=== PATIENT | male | born 1950 | race Caucasian/White ===

== ENCOUNTER → 2023-10-17 09:23 | Outpatient (REF) | payer MEDICARE, SELFPAY | LOC: RCS 09:23 | PROVIDERS: ATTENDING PHYSICIAN Family Medicine | DX: G31.84 Mild cognitive impairment of uncertain or unknown etiology (principal); R42 Dizziness and giddiness; E78.5 Hyperlipidemia, unspecified; I25.10 Atherosclerotic heart disease of native coronary artery without angina pectoris; I35.0 Nonrheumatic aortic (valve) stenosis | CPT/HCPCS: 93225; 93226 ==

== ENCOUNTER → 2023-10-20 14:43 | Outpatient (REF) | payer MEDICARE, SELFPAY | LOC: HWRCS 14:43 | PROVIDERS: ATTENDING PHYSICIAN Family Medicine | DX: I35.0 Nonrheumatic aortic (valve) stenosis (principal) | CPT/HCPCS: 93306 ==

== ENCOUNTER → 2023-10-30 07:52 | Outpatient (REF) | payer MEDICARE, SELFPAY | LOC: HWRAD 07:52 | PROVIDERS: ATTENDING PHYSICIAN Family Medicine | DX: M54.2 Cervicalgia (principal) | CPT/HCPCS: 72050 ==

== ENCOUNTER 2023-11-23 08:11 | Day surgery (SDC) | payer MEDICARE, SELFPAY ==
[2023-11-23] VITALS (15 sets, daily range): BP systolic 102–160; BP diastolic 52–92; BMI 26.7
[2023-11-23] MEDS: NSS 215 ML IV (09:00)
[2023-11-23 09:35] LABS: ACT-LR - POC 382 Seconds (116-155)
--- NOTE | 2023-11-23 10:29 | ITS.CL.CATH ---
[employer] - Catheterization
Cardiac Catheterization
Procedure Report:
CARDIAC CATHETERIZATION REPORT
Date of Procedure: 11/23/2023
Referring: Brad Heller MD
Indication: Exertional dyspnea with severe aortic stenosis by echo
HEMODYNAMIC DATA
AO: 124/60
LV: 167/20
The mean gradient across the aortic valve is 31 mmHg
LEFT VENTRICULOGRAPHY: Not done
CORONARY ANGIOGRAPHY
Dominance: Right
Left Main: Normal
LAD: There is a widely patent mid LAD stent (ROYA 2019) with mild luminal irregularities in the mid LAD. There is a 90% distal LAD stenosis new since the prior study from 2019. The large first diagonal branch has 30% proximal stenosis. The large
second diagonal branch has a widely patent proximal stent with 30% stenosis distal to the stent and otherwise mild luminal irregularities.
Circumflex: The circumflex gives rise to a medium sized OM1, a large OM 2, and terminates with a tiny OM 3. There is focal 30-40% proximal OM2 stenosis
RCA: Moderate calcification with 30% distal stenosis just past the crux and otherwise multiple areas of mild luminal disease throughout the dominant RCA
Angioplasty: At the conclusion of the diagnostic study, we proceeded with intervention to treat the distal LAD disease. Of note, elective surgical consultation was not obtained to discuss the option for AVR CABG as the LAD lesion was distal making
it an unlikely surgical target. Furthermore, the aortic stenosis appears to be moderate to severe. My thinking was that coronary revascularization may eliminate his symptoms allowing him to be followed for progressive aortic stenosis then treated
with TAVR. Heparin was used for anticoagulation. Plavix 600 mg was administered the procedure conclusion. A 6 Turkmen EBU 3.75 guide catheter was advanced to the left coronary ostium. A whisper wire could not be passed across the lesion.
Fortunately, a Fielder XT was successfully passed to the apical LAD. Angioplasty was accomplished with a 2.25 x 12 trek balloon. We were unable to pass a 2.25 x 18 Xience ROYA across the entirety of the lesion. The undeployed stent was carefully
removed and further angioplasty to maximum 12 neisha performed. This allowed the stent to the target location where was deployed at 15 years and then postdilated with a 2.5 NC trek to atmospheres. The result was outstanding. There were no procedural
complications.
Closure Device: None-the procedure was performed via the right radial artery. The Marc's test was normal prior to the procedure.
Radiation (mGy): 370
DAP (cm2.Gy): 25.5
Fluoroscopy time: 12.6 minutes
CONCLUSIONS
1: Moderate to severe aortic stenosis. There is severe fluoroscopic calcification of the valve
2: Severe single-vessel CAD as described. The previously placed LAD and diagonal stents are widely patent. 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
3. Successful stenting of distal LAD stenosis using 2.25 x 18 Xience ROYA postdilated with a 2.5 noncompliant balloon with outstanding final result
4. Recommend dual antiplatelet therapy for 12 months and continued risk factor modification efforts. I would use an LDL goal of less than 55 for this patient given the presence of diffuse luminal disease and multiple events
Copy to: Brad Heller MD, Amaury Polanco MD
Jung Beatty MD, [facility], [facility]
[2023-11-23] MEDS: NSS 1000 IV (10:30)
[2023-11-23] MEDS: LOW STRENGTH ASPIRIN 81 MG PO (12:18)
--- NOTE | 2023-11-23 14:46 | W.PN.UPDATE ---
Update Note
Progress Note Update
73 yo WM s/p PCI distal LAD x1 ROYA (same day) He feels good, no cp, sob, ayden diet, voiding, amb w/o dizziness, EKG SB no ST changes, R rad site c/d/i no HT, good pulse. He will be on DAPT ASA/Plavix. Cardiac rehab c/s. Activity restrictions
reviewed. He will f/u [employer] in 2 weeks. He is for d/c home after 3pm.
CONCLUSIONS
1: Moderate to severe aortic stenosis. There is severe fluoroscopic calcification of the valve
2: Severe single-vessel CAD as described. The previously placed LAD and diagonal stents are widely patent. 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
3. Successful stenting of distal LAD stenosis using 2.25 x 18 Xience ROYA postdilated with a 2.5 noncompliant balloon with outstanding final result
4. Recommend dual antiplatelet therapy for 12 months and continued risk factor modification efforts. I would use an LDL goal of less than 55 for this patient given the presence of diffuse luminal disease and multiple events
Copy to: Brad Heller MD, Amaury Polanco MD
[2023-11-27 11:18] LABS: ACT-LR - POC > 397 Seconds (116-155)
== END 2023-11-23 16:05 | disposition home or self-care (01) ==
LOC: CATH 08:11
PROVIDERS: ATTENDING PHYSICIAN Internal Medicine Cardiovascular Disease; FAMILY PHYSICIAN Family Medicine; OTHER PHYSICIAN Internal Medicine Cardiovascular Disease
DX: I25.10 Atherosclerotic heart disease of native coronary artery without angina pectoris (principal); Z95.5 Presence of coronary angioplasty implant and graft; Z79.82 Long term (current) use of aspirin; Z79.02 Long term (current) use of antithrombotics/antiplatelets; I08.0 Rheumatic disorders of both mitral and aortic valves; I08.8 Other rheumatic multiple valve diseases; I10 Essential (primary) hypertension; E78.5 Hyperlipidemia, unspecified
CPT/HCPCS: 93005; 93458; C1725; C1769; C1874; C1894; C9600; Q9967

== ENCOUNTER → 2023-12-04 07:06 | Outpatient (REF) | payer MEDICARE, SELFPAY | LOC: RAD 07:06 | PROVIDERS: ATTENDING PHYSICIAN Family Medicine | DX: G31.84 Mild cognitive impairment of uncertain or unknown etiology (principal); R42 Dizziness and giddiness; I35.0 Nonrheumatic aortic (valve) stenosis | CPT/HCPCS: 93880 ==

== ENCOUNTER → 2024-09-17 07:16 | Outpatient (REF) | payer MEDICARE, SELFPAY | LOC: HWRCS 07:16 | PROVIDERS: ATTENDING PHYSICIAN Internal Medicine Cardiovascular Disease; FAMILY PHYSICIAN Family Medicine | DX: I35.0 Nonrheumatic aortic (valve) stenosis (principal) | CPT/HCPCS: 93306 ==

== ENCOUNTER 2024-09-25 17:44 | Emergency (ER) | payer MEDICARE, SELFPAY ==
[2024-09-25 17:46] VITALS: BP 175/90
--- NOTE | 2024-09-25 19:02 | ED.GENMED ---
History of Present Illness
General
Chief Complaint: Nose Bleed
Source: patient
Exam Limitations: none
Time Seen by Provider: 09/25/24 18:41
Nursing documentation reviewed up to this point in time: agreed with
History of Present Illness
History of Present Illness:
Pleasant 73-year-old male presents to the emergency department with nosebleed. He states that around 4 AM he developed a nosebleed which was intermittently present throughout the day. Patient states that he gets 2-3 nosebleeds per month but they
are usually self-limited. Denies any other symptoms. Upon arrival, bleeding has stopped. Reports no other symptoms.
Past History
Past History
ED Past Medical History: None
ED Past Surgical History: None
Social History
Tobacco: Non-smoker
Alcohol: None
Drug: None
Personal:
Living: with family
Review of Systems
Review of Systems
Allergies reviewed?: Yes
All Other Systems: ROS reviewed and negative except as documented in HPI and ROS
EENT: Reports other (Epistaxis)
Phy Exam
Physical Exam
Physical Exam:
Right naris shows some dried blood in the anterior Linh box plexus. Bleeding has stopped. Left naris shows some scant dried blood.
General Physical Exam
General Presentation: well appearing and no apparent distress
General age: appears stated age
General Skin: warm and dry
General Habitus: normal
General Mental: alert
Cardiovascular Exam
Cardiovascular Exam: regular rate/rhythm
Pulmonary Exam
Pulmonary Exam: no respiratory distress and no cough
Neurological Exam
Neurological Exam: alert and oriented x3
Musculoskeletal Exam
Musculoskeletal Exam: full ROM
Skin Exam
Skin Exam: normal color and warm/dry
Psychiatric Exam
Psychiatric Exam: normal mood/affect
Course
Vital Signs
Initial and Last Documented VS:
Initial Vital Signs
Temp Pulse Resp BP Pulse Ox
99.0 F 75 20 175/90 99
09/25/24 17:46 09/25/24 17:46 09/25/24 17:46 09/25/24 17:46 09/25/24 17:46
Last Documented Vital Signs
Temp Pulse Resp BP Pulse Ox
99.0 F 64 18 159/71 99
09/25/24 17:46 09/25/24 19:26 09/25/24 19:26 09/25/24 19:26 09/25/24 19:26
Procedures
Nosebleed
Drug treatment: none
Treatment: Silver nitrate cautery
Post treatment bleeding: none- good control
*Critical Care Note
Total Time (30-74mins, 75-104mins- exclusive of procedures): Not Applicable
ED Attending Note
-
Portions of this chart may have been created with voice recognition software.� Occasional wrong word or��sound alike� substitutions may have occurred due to the inherent limitations of voice recognition software.
Discharge Plan
Departure
Patient Disposition: Home (Routine Discharge)
Date of Disposition: 09/25/24
Time of Disposition: 19:47
Patient with high blood pressure during this ER visit?: Yes
Discharge Problem:
Bleeding nose
Instructions: Nosebleeds (DC), BLOOD PRESSURE
Prescriptions:
No Action
Zinc Chelate 100 MG tablet
100 mg PO DAILY
Patient Comments:
Zinc 100 mls daily
aspirin [Aspir-Low] 81 MG tablet,delayed release (DR/EC)
81 mg PO DAILY
fish oil-dha-epa 1 EACH capsule
2,400 mg PO DAILY
magnesium sulfate in LR 25 GM/250 ML solution
250 ml PO DAILY
cholecalciferol (vitamin D3) [Vitamin D3] 2,000 UNIT capsule
2,000 unit PO DAILY
acidophilus-pectin, citrus [Acidophilus Probiotic] 1 EACH capsule
1 PO DAILY
Patient Comments:
2 billion CFU
potassium gluconate 500 MG tablet
500 mg PO DAILY
biotin 5,000 MCG tablet,disintegrating
5,000 mcg PO DAILY
atorvastatin 40 MG tablet
40 mg PO QPM Qty: 90 3RF
nitroglycerin 0.4 MG tablet, sublingual
0.4 mg sublingual [id number] PRN (Reason: chest pain) Qty: 25 2RF
metoprolol succinate 25 mg Capsule,Sprinkle,Er 24hr
25 mg PO DAILY
clopidogrel 75 mg tablet
75 mg PO DAILY Qty: 90 10RF
Referrals:
Amaury Polanco MD [Family Provider] -
Jalil Connolly MD [Active] -
Activity Restrictions/Additional Instructions:
It was a pleasure meeting you and taking part in your care. We hope for your continued healing and wellness.
Please read discharge instructions in their entirety. However, they are for general education and may not describe your exact diagnosis at discharge. Information on your ER visit and medical conditions were discussed with you along with appropriate
follow up information...
If indicated, please take your medications as instructed and indicated on discharge paperwork.
Please schedule a follow up appointment as directed. Call to schedule an appointment
Please return to the emergency department with ANY change in, persisting, or worsening of symptoms. If any of your symptoms do not improve, or persist, or become more severe within 6-12 hours, please return to the emergency department for further
care.
Please return to the emergency department if you develop a headache, neck pain/stiffness, fever greater than 100.4F, chest pain, shortness of breath, persistent nausea, vomiting, slurred speech, difficulty walking, numbness/tingling, weakness, signs
of infection or any other symptoms that are worrisome to you.
If you have any questions or concerns please do not hesitate to call the Hospital at or E-mail me directly at [email or web address]
Interventions
Interventions:
*Risk Screen - Suicide Last Done: 09/25/24 17:46
*General Assessment Last Done: 09/25/24 17:46
*Neglect/Abuse Screening Last Done: 09/25/24 17:46
ED- Fall Risk Assessment Last Done: 09/25/24 19:55
*ED COVID-19 Vaccine History Last Done: 09/25/24 19:27
*Nursing Disposition Last Done: 09/25/24 19:55
ED-EENT Assessment Last Done: 09/25/24 18:19
Discharge Date and Time
Discharge Date/Time: 09/25/24 19:55
Print Language: MACEDONIAN
[2024-09-25 19:26] VITALS: BP 159/71
== END 2024-09-25 19:55 | disposition home or self-care (01) ==
LOC: EMR 17:44
PROVIDERS: EMERGENCY PHYSICIAN Student in an Organized Health Care Education/Training Program; FAMILY PHYSICIAN Family Medicine
DX: R04.0 Epistaxis (principal)
CPT/HCPCS: 99282

== ENCOUNTER 2024-09-28 09:30 | Emergency (ER) | payer MEDICARE, SELFPAY ==
[2024-09-28 09:36] VITALS: BP 147/61
[2024-09-28 13:12] VITALS: BP 156/87
--- NOTE | 2024-09-28 14:24 | ED.GENMED ---
History of Present Illness
General
Chief Complaint: Nose Bleed
Source: patient
Exam Limitations: none
Time Seen by Provider: 09/28/24 11:36
Nursing documentation reviewed up to this point in time: agreed with
History of Present Illness
History of Present Illness:
73 y/o M with h/o cad on plavix, aortic stenosis
htn, hld
here with nosebleed R nostril x 5 days
was seen here 5 days ago for this
and was cauterized; he says he has had intermittent bleeding the past 4 days but today since 1 am has had waxing and waning bleeding in more volume than before
did not call ENT
he has never had nosebleeds before
no headache, fever, syncope, cp, sob, infection
he did not pick his nose or have trauma before the symtoms started
he has not tried to hold pressure
there were a few clots
not really feeling symptoms down back of thraot
Past History
Past History
ED Past Medical History: CAD, HTN, Hypercholesterolemia and Other (aortic stenosis)
ED Past Surgical History: Cardiac
Social History
Tobacco: Non-smoker
Alcohol: None
Drug: None
Personal:
Living: with family
Review of Systems
Review of Systems
Allergies reviewed?: Yes
All Other Systems: Not applicable
Phy Exam
Physical Exam
Physical Exam:
GENERAL: Alert , in no apparent distress
EYE: pupils equal and reactive
NECK: Supple
ENT: R nostril fresh blood but no obvious actvie bleeding; no clots; engorged turbinates
left nostril normal
posterior pharynx no bleeding
CARDIAC: Regular rate and rhythm, no edema
LUNGS: Clear breath sounds bilaterally, no acute respiratory distress, no wheezes/rales/rhonchi, occ cough
NEUROLOGICAL: Alert and oriented, no focal neuro deficits
SKIN: Warm and dry, skin intact.
MUSCULOSKELETAL: No edema, well perfused.
PSYCH: Normal and appropriate interaction.
Course
Orders/Labs/Results
Orders:
Orders
09/28/24 12:20
Tranexamic Acid 1,000 mg .ROUTE .STK-MED ONE
Vital Signs
Initial and Last Documented VS:
Initial Vital Signs
Temp Pulse Resp BP Pulse Ox
36.8 C 64 18 147/61 100
09/28/24 09:36 09/28/24 09:36 09/28/24 09:36 09/28/24 09:36 09/28/24 09:36
Last Documented Vital Signs
Temp Pulse Resp BP Pulse Ox
36.8 C 60 18 156/87 100
09/28/24 09:36 09/28/24 13:12 09/28/24 13:12 09/28/24 13:12 09/28/24 13:12
Procedures
Nosebleed
Drug treatment: Tranexamic Acid
Treatment: local pressure applied, Silver nitrate cautery and other (anterior rhinorocket)
Post treatment bleeding: none- good control
MDM/Problems Addressed
Differential Diagnosis Includes:
epistaxis
MDM/Problems Addressed:
73 y/o M
intermittent epistaxis x 5 days
was seen ehre and had catuterization but has contineud to have episodes
not significant in volume, has not tried applying pressure but has oozing or driping here and there
today he is not lightheaded
well appearing
stable vitals
some fresh blood in nostril; anteriorly i tried to cauterize after TXA cotton ball but it continued to ooze so decision for packing made
initially tried 5.5 cm but switched to 4.5 cm and toelrated well
no bleeding
d/c home
ent f/u 2-3 days
*Critical Care Note
Total Time (30-74mins, 75-104mins- exclusive of procedures): Not Applicable
ED Attending Note
-
Portions of this chart may have been created with voice recognition software.� Occasional wrong word or��sound alike� substitutions may have occurred due to the inherent limitations of voice recognition software.
Discharge Plan
Departure
Patient Disposition: Home (Routine Discharge)
Date of Disposition: 09/28/24
Time of Disposition: 13:34
Patient with high blood pressure during this ER visit?: Yes
Covid-19: Not Applicable
Discharge Problem:
Acute anterior epistaxis
Instructions: Nosebleeds (DC), BLOOD PRESSURE
Prescriptions:
No Action
Zinc Chelate 100 MG tablet
100 mg PO DAILY
Patient Comments:
Zinc 100 mls daily
aspirin [Aspir-Low] 81 MG tablet,delayed release (DR/EC)
81 mg PO DAILY
fish oil-dha-epa 1 EACH capsule
2,400 mg PO DAILY
magnesium sulfate in LR 25 GM/250 ML solution
250 ml PO DAILY
cholecalciferol (vitamin D3) [Vitamin D3] 2,000 UNIT capsule
2,000 unit PO DAILY
acidophilus-pectin, citrus [Acidophilus Probiotic] 1 EACH capsule
1 PO DAILY
Patient Comments:
2 billion CFU
potassium gluconate 500 MG tablet
500 mg PO DAILY
biotin 5,000 MCG tablet,disintegrating
5,000 mcg PO DAILY
atorvastatin 40 MG tablet
40 mg PO QPM Qty: 90 3RF
nitroglycerin 0.4 MG tablet, sublingual
0.4 mg sublingual [id number] PRN (Reason: chest pain) Qty: 25 2RF
metoprolol succinate 25 mg Capsule,Sprinkle,Er 24hr
25 mg PO DAILY
clopidogrel 75 mg tablet
75 mg PO DAILY Qty: 90 10RF
Referrals:
Amaury Polanco MD [Family Provider] - Follow up in 2-3 days
Germaine Mahajan MD [Active] - Follow up in 2-3 days
Activity Restrictions/Additional Instructions:
YOUR NOSE WAS PACKED
LEAVE IT IN PLACE FOR 2-3 DAYS AT MOST
FOLLOW UP WITH EAR NOSE AND THROAT FOR REMOVAL
IF YOU CANNOT GET APPT ON MONDAY, GO TO URGENT CARE OR RETURN FOR US TO REMVOE THE PACKING
YOU MAY HAVE SOME OOZING FROM THE OTHER SIDE
YOU CAN TRY AFRIN OVER THE COUNTER SPRAY 1-2 SPRAYS LEFT NOSTRIL TWICE A DAY FOR 2 DAYS AT MOST
RETURN FOR ANY CONCERNS
Interventions
Interventions:
*Risk Screen - Suicide Last Done: 09/28/24 13:51
*General Assessment Last Done: 09/28/24 13:51
*Neglect/Abuse Screening Last Done: 09/28/24 13:51
ED- Fall Risk Assessment Last Done: 09/28/24 13:51
*ED COVID-19 Vaccine History Last Done: 09/28/24 13:51
*Nursing Disposition Last Done: 09/28/24 13:51
ED-EENT Assessment Last Done: 09/28/24 13:12
Discharge Date and Time
Discharge Date/Time: 09/28/24 13:52
Print Language: MALAWIAN
== END 2024-09-28 13:52 | disposition home or self-care (01) ==
LOC: EMR 09:30
PROVIDERS: EMERGENCY PHYSICIAN Emergency Medicine; FAMILY PHYSICIAN Family Medicine
DX: R04.0 Epistaxis (principal); I25.10 Atherosclerotic heart disease of native coronary artery without angina pectoris; I10 Essential (primary) hypertension; E78.00 Pure hypercholesterolemia, unspecified; I35.0 Nonrheumatic aortic (valve) stenosis; G47.30 Sleep apnea, unspecified; K57.92 Diverticulitis of intestine, part unspecified, without perforation or abscess without bleeding; K21.9 Gastro-esophageal reflux disease without esophagitis; N40.0 Benign prostatic hyperplasia without lower urinary tract symptoms; Z95.5 Presence of coronary angioplasty implant and graft; Z79.02 Long term (current) use of antithrombotics/antiplatelets; Z88.2 Allergy status to sulfonamides
CPT/HCPCS: 99283; 30901

== ENCOUNTER 2024-10-07 17:29 | Emergency (ER) | payer MEDICARE, SELFPAY ==
[2024-10-07 17:34] VITALS: BP 139/72
[2024-10-07 17:53] VITALS: BMI 26.6
[2024-10-07 22:13] VITALS: BP 137/82
--- NOTE | 2024-10-07 23:23 | ED.GENMED ---
History of Present Illness
General
Chief Complaint: Nose Bleed
Source: patient, records and spouse
Exam Limitations: none
Time Seen by Provider: 10/07/24 18:26
Nursing documentation reviewed up to this point in time: agreed with
History of Present Illness
History of Present Illness:
73-year-old male with history as documented returns to the ER for epistaxis. Here twice earlier this month for epistaxis in the right nare. He says that he had a packing in place after a second visit and it was removed, saw Dr. Browne in the office
for follow-up. Did not have any additional bleeding until today when he sneezed and had return of bleeding in his right nare. No trauma. He is on aspirin and Plavix for CAD and stents.
Past History
Past History
ED Past Medical History: CAD, HTN, Hypercholesterolemia and Other (aortic stenosis)
ED Past Surgical History: Cardiac
Social History
Tobacco: Non-smoker
Alcohol: None
Drug: None
Personal:
Living: with family
Review of Systems
Review of Systems
All Other Systems: ROS reviewed and negative except as documented in HPI and ROS
EENT: Reports other (Epistaxis)
Phy Exam
Physical Exam
Physical Exam:
General: Well appearing and non-toxic
HEENT: protecting airway; patient has bleeding from right nare, no active bleeding in the left nare, scant blood in the posterior oropharynx; source of bleeding appears to be visualized right anterior nasal septum
Neck: appears supple
CV: No evidence of cyanosis
Resp: No accessory muscle use
Abd: Non-distended
Extremities: No deformities
Neuro: Alert
Psych: Normal affect
Skin: Intact
Scores
Heart Failure Risk
Heart Failure Risk Score: Not Applicable
Heart Score for Chest Pain Patients
STEMI patient?: Not applicable
Withdrawal Assessment of Alcohol
Withdrawal Assessment Completed?: Not applicable
Course
Orders/Labs/Results
Orders:
Orders
10/07/24 20:57
Sterile Water [Sterile Water For Injection] 20 ml .ROUTE .STK-MED
Vital Signs
Initial and Last Documented VS:
Initial Vital Signs
Temp Pulse Resp BP Pulse Ox
37.1 C 76 16 139/72 99
10/07/24 17:34 10/07/24 17:34 10/07/24 17:34 10/07/24 17:34 10/07/24 17:34
Last Documented Vital Signs
Temp Pulse Resp BP Pulse Ox
37.1 C 69 18 137/82 100
10/07/24 17:34 10/07/24 22:13 10/07/24 22:13 10/07/24 22:13 10/07/24 22:13
Procedures
Nosebleed
Drug treatment: Epinephrine
Treatment: local pressure applied, Silver nitrate cautery and other (Rhino Rocket)
Post treatment bleeding: none- good control
MDM/Problems Addressed
Differential Diagnosis Includes:
Anterior epistaxis
MDM/Problems Addressed:
73-year-old male presents with right anterior epistaxis. Attempted direct pressure without great hemostasis. I then applied local epinephrine with further direct pressure again with no hemostasis. I then attempted silver nitrate cautery had
transient hemostasis but bleeding recurred after about 30 minutes. I then attempted packing with Merocel but this was unsuccessful I then proceeded to 4.5 cm anterior Rhino Rocket with good hemostasis. Discharged with ENT referral.
Chronic conditions affecting care:
CAD requiring aspirin and Plavix complicates epistaxis
*Pulse Oximetry
Patient hypoxic: no
*Critical Care Note
Total Time (30-74mins, 75-104mins- exclusive of procedures): Not Applicable
Data Reviewed
Source: patient, records and spouse
ED Attending Note
-
Portions of this chart may have been created with voice recognition software.� Occasional wrong word or��sound alike� substitutions may have occurred due to the inherent limitations of voice recognition software.
Discharge Plan
Departure
Patient Disposition: Home (Routine Discharge)
Date of Disposition: 10/07/24
Time of Disposition: 22:17
Patient with high blood pressure during this ER visit?: No
Discharge Problem:
Acute anterior epistaxis
Instructions: Nosebleeds (DC)
Prescriptions:
No Action
Zinc Chelate 100 MG tablet
100 mg PO DAILY
Patient Comments:
Zinc 100 mls daily
aspirin [Aspir-Low] 81 MG tablet,delayed release (DR/EC)
81 mg PO DAILY
fish oil-dha-epa 1 EACH capsule
2,400 mg PO DAILY
magnesium sulfate in LR 25 GM/250 ML solution
250 ml PO DAILY
cholecalciferol (vitamin D3) [Vitamin D3] 2,000 UNIT capsule
2,000 unit PO DAILY
acidophilus-pectin, citrus [Acidophilus Probiotic] 1 EACH capsule
1 PO DAILY
Patient Comments:
2 billion CFU
potassium gluconate 500 MG tablet
500 mg PO DAILY
biotin 5,000 MCG tablet,disintegrating
5,000 mcg PO DAILY
atorvastatin 40 MG tablet
40 mg PO QPM Qty: 90 3RF
nitroglycerin 0.4 MG tablet, sublingual
0.4 mg sublingual [id number] PRN (Reason: chest pain) Qty: 25 2RF
metoprolol succinate 25 mg Capsule,Sprinkle,Er 24hr
25 mg PO DAILY
clopidogrel 75 mg tablet
75 mg PO DAILY Qty: 90 10RF
Referrals:
Amaury Polanco MD [Family Provider] -
Chicho Browne MD [Active] - Follow up in 2-3 days
Activity Restrictions/Additional Instructions:
Thank you for visiting the Emergency Department at [facility].
1. Please schedule a follow up appointment as directed. Call first thing tomorrow morning to make an appointment.
2. If indicated, please take your medications as instructed and indicated on discharge paperwork.
3. If any of your symptoms do not improve, or persist, or become more severe within 6-12 hours, please return to the emergency department for further care.
4. Please return to the emergency department if you develop a headache, neck pain/stiffness, fever greater than 100.4F, chest pain, shortness of breath, persistent nausea, vomiting, slurred speech, difficulty walking, numbness/tingling, weakness,
signs of infection or any other symptoms that are worrisome to you.
Please call [phone] if you have any questions.
Interventions
Interventions:
*Risk Screen - Suicide Last Done: 10/07/24 17:53
*General Assessment Last Done: 10/07/24 17:53
*Neglect/Abuse Screening Last Done: 10/07/24 17:53
ED- Fall Risk Assessment Last Done: 10/07/24 17:53
*ED COVID-19 Vaccine History Last Done: 10/07/24 17:53
*Nursing Disposition Last Done: 10/07/24 22:18
ED-EENT Assessment Last Done: 10/07/24 17:53
Discharge Date and Time
Discharge Date/Time: 10/07/24 22:18
Print Language: MONGOLIAN
== END 2024-10-07 22:18 | disposition home or self-care (01) ==
LOC: EMR 17:29
PROVIDERS: EMERGENCY PHYSICIAN Emergency Medicine; FAMILY PHYSICIAN Family Medicine
DX: R04.0 Epistaxis (principal); I25.10 Atherosclerotic heart disease of native coronary artery without angina pectoris; I10 Essential (primary) hypertension; E78.00 Pure hypercholesterolemia, unspecified; Z95.5 Presence of coronary angioplasty implant and graft; Z79.02 Long term (current) use of antithrombotics/antiplatelets; Z79.82 Long term (current) use of aspirin
CPT/HCPCS: 30901; 99282

== ENCOUNTER 2024-10-08 10:37 | Emergency (ER) | payer MEDICARE, SELFPAY ==
[2024-10-08 11:06] VITALS: BP 149/63
--- NOTE | 2024-10-08 12:30 | ED.GENMED ---
History of Present Illness
General
Chief Complaint: Nose Bleed
Source: patient and spouse
Exam Limitations: none
Time Seen by Provider: 10/08/24 11:44
Nursing documentation reviewed up to this point in time: agreed with
History of Present Illness
History of Present Illness:
73-year-old male past medical history of CAD hypertension hyperlipidemia presenting to the emergency department today with concerns of right sided nosebleed. He had his nose packed yesterday in the ER it fell out today he was concerned that he
could have recurrence. No bleeding today specifically. Patient is on Plavix. No additional symptoms otherwise
Past History
Past History
ED Past Medical History: CAD, HTN, Hypercholesterolemia and Other (aortic stenosis)
ED Past Surgical History: Cardiac
Social History
Tobacco: Non-smoker
Alcohol: None
Drug: None
Personal:
Living: with family
Review of Systems
Review of Systems
Allergies reviewed?: Yes
All Other Systems: ROS reviewed and negative except as documented in HPI and ROS
Phy Exam
Physical Exam
Physical Exam:
GENERAL: Alert , in no apparent distress
EYE: pupils equal and reactive
NECK: Supple, no significant adenopathy.
ENT: Small clot to the right nasal septum. o/p clr, mmm.
CARDIAC: Regular rate and rhythm .
LUNGS: Clear breath sounds bilaterally, no acute respiratory distress, no wheezes/rales/rhonchi
ABDOMEN: Soft, without focal tenderness, no r/g, no cvat
NEUROLOGICAL: Alert and oriented, no focal neuro deficits
SKIN: Warm and dry, skin intact.
MUSCULOSKELETAL: No edema, well perfused.
PSYCH: Normal and appropriate interaction.
Course
Vital Signs
Initial and Last Documented VS:
Initial Vital Signs
Temp Pulse Resp BP Pulse Ox
99.2 F 61 18 149/63 98
10/08/24 11:06 10/08/24 11:06 10/08/24 11:06 10/08/24 11:06 10/08/24 11:06
Last Documented Vital Signs
Temp Pulse Resp BP Pulse Ox
99.2 F 61 18 149/63 98
10/08/24 11:06 10/08/24 11:06 10/08/24 11:06 10/08/24 11:06 10/08/24 11:06
Procedures
Nosebleed
Drug treatment: none
Treatment: Silver nitrate cautery
Post treatment bleeding: none- good control
MDM/Problems Addressed
MDM/Problems Addressed:
73-year-old male presenting to the emergency department today with concerns of his nasal packing falling out that was placed yesterday. Here does have a small area of scab that looks to be a likely where there was some degree of bleeding recently.
This area was cauterized no bleeding here for over an hour. Patient stable for outpatient follow-up return precautions given.
*Critical Care Note
Total Time (30-74mins, 75-104mins- exclusive of procedures): Not Applicable
ED Attending Note
-
Portions of this chart may have been created with voice recognition software.� Occasional wrong word or��sound alike� substitutions may have occurred due to the inherent limitations of voice recognition software.
Discharge Plan
Departure
Patient Disposition: Home (Routine Discharge)
Date of Disposition: 10/08/24
Time of Disposition: 12:30
Patient with high blood pressure during this ER visit?: No
Condition: Good
Covid-19: Not Applicable
Discharge Problem:
Acute anterior epistaxis
Instructions: Nosebleeds (DC)
Prescriptions:
No Action
Zinc Chelate 100 MG tablet
100 mg PO DAILY
Patient Comments:
Zinc 100 mls daily
aspirin [Aspir-Low] 81 MG tablet,delayed release (DR/EC)
81 mg PO DAILY
fish oil-dha-epa 1 EACH capsule
2,400 mg PO DAILY
magnesium sulfate in LR 25 GM/250 ML solution
250 ml PO DAILY
cholecalciferol (vitamin D3) [Vitamin D3] 2,000 UNIT capsule
2,000 unit PO DAILY
acidophilus-pectin, citrus [Acidophilus Probiotic] 1 EACH capsule
1 PO DAILY
Patient Comments:
2 billion CFU
potassium gluconate 500 MG tablet
500 mg PO DAILY
biotin 5,000 MCG tablet,disintegrating
5,000 mcg PO DAILY
atorvastatin 40 MG tablet
40 mg PO QPM Qty: 90 3RF
nitroglycerin 0.4 MG tablet, sublingual
0.4 mg sublingual [id number] PRN (Reason: chest pain) Qty: 25 2RF
metoprolol succinate 25 mg Capsule,Sprinkle,Er 24hr
25 mg PO DAILY
clopidogrel 75 mg tablet
75 mg PO DAILY Qty: 90 10RF
Referrals:
Amaury Polanco MD [Family Provider] -
Activity Restrictions/Additional Instructions:
You came to the emergency department today with concerns of nosebleed. You had a cauterization today. Please follow-up with ENT as needed. Return for any worsening, new or concerning symptoms.
Interventions
Interventions:
*Risk Screen - Suicide Last Done: 10/08/24 11:06
*General Assessment Last Done: 10/08/24 11:06
*Neglect/Abuse Screening Last Done: 10/08/24 11:41
*ED COVID-19 Vaccine History Last Done: 10/08/24 11:06
*Nursing Disposition Last Done: 10/08/24 12:44
ED-EENT Assessment Last Done: 10/08/24 11:41
Discharge Date and Time
Discharge Date/Time: 10/08/24 12:45
Print Language: GREEK
== END 2024-10-08 12:45 | disposition home or self-care (01) ==
LOC: EMR 10:37
PROVIDERS: EMERGENCY PHYSICIAN Student in an Organized Health Care Education/Training Program; FAMILY PHYSICIAN Family Medicine
DX: R04.0 Epistaxis (principal); I10 Essential (primary) hypertension; I25.10 Atherosclerotic heart disease of native coronary artery without angina pectoris; E78.00 Pure hypercholesterolemia, unspecified; I35.0 Nonrheumatic aortic (valve) stenosis; Z79.02 Long term (current) use of antithrombotics/antiplatelets; Z88.2 Allergy status to sulfonamides
CPT/HCPCS: 99283; 30901

== ENCOUNTER 2024-10-16 06:22 | Day surgery (SDC) | payer MEDICARE, SELFPAY ==
[2024-10-08 10:24] VITALS: BMI 26.2
[2024-10-16] VITALS (14 sets, daily range): BP systolic 122–161; BP diastolic 62–77; BMI 25.8
[2024-10-16] MEDS: NSS 211 ML IV (07:15)
--- NOTE | 2024-10-16 07:43 | CONSULT.STRU ---
Consultation
-
Date/Time Consultation Requested: 10/16/2024
Date/Time Consultation Performed: 10/16/2024
Requesting Provider: Fermin Cruz DO
Performing Provider: GUDELIA Malin
Reason for Consultation: /TAVR
Patient History
Physicians
Family Physician: Amaury Lopez MD
Outpatient Transportation Operations Manager: Brad Heller MD
Primary Transportation Operations Manager: Brad Heller MD
History of Present Illness
Mr. Lott is a pleasant 73 yom with a past medical history significant for , CAD (recent stent to LAD and D1), HLD, DEIDRA, and HTN. His echocardiogram from 09/17/2024 is notable for an EF 65-70%, AV P/M 70/38, LAURA 0.8, pk arias. 4.21, mild , MAC with
no MR, trace TR, PAP 25-30. From a symptomatology standpoint Mr. Lott describes an increase in fatigue, he denies CP or dizziness. He states he was walking about 2 miles daily up until 2 months ago and has stopped d/t fatigue. Discussed the
pathophysiology and treatment options of including SAVR and TAVR. Spoke about lifelong planning about the durability of AVR and the potential for another GABI in the future. Reviewed the difference between SAVR and TAVR and the benefits of each.
Explained the evaluation process comprising of lab work, CT scan, CT surgical consult, dental clearance and a heart team discussion. TAVR booklet, contact information, prescriptions, and appointments given to patient. Discussed the team approach and
the team will discuss the recommendation for AVR with him. Allowed for and answered questions at bedside.
Past Medical History
Past Medical History: BPH, CAD, HTN, DEIDRA, Valvular Disease (aortic stenosis) and Other (hyperlipidemia, diverticulosis, colon polyps, inguinal hernia, heme + stool, Hemorrhoids)
Past Surgical History
Past Surgical History: Other (inguinal hernia repair)
Dental History
Dr. Craig (patient is UTD)
Family History
Mother: at Age (93)
Father: at Age (91)
Social History
Alcohol: Occasional
Drug: None
Tobacco: Non-Smoker
Personal:
Living: With Spouse
Allergies
Allergy/AdvReac Type Severity Reaction Status Date / Time
Sulfa (Sulfonamide Allergy Hives Verified 10/16/24 07:25
Antibiotics)
Home Medications
�Medication �Instructions �Recorded �Confirmed �Type
aspirin 81 mg tablet,delayed 81 mg PO DAILY 01/31/20 11/23/23 History
release (Aspir-Low)
atorvastatin 40 mg tablet 40 mg PO QPM #90 tabs 01/31/20 11/23/23 Rx
cholecalciferol (vitamin D3) 50 2,000 unit PO DAILY 01/31/20 11/23/23 History
mcg (2,000 unit) capsule (Vitamin
D3)
fish oil-dha-epa 1,200 mg-144 2,400 mg PO DAILY 01/31/20 11/23/23 History
mg-216 mg capsule
magnesium sulfate in LR 25 250 ml PO DAILY 01/31/20 11/23/23 History
gram/250 mL intravenous solution
potassium gluconate 500 mg (83 mg) 500 mg PO DAILY 01/31/20 11/23/23 History
tablet
zinc 100 mg tablet (Zinc Chelate) 100 mg PO DAILY 01/31/20 11/23/23 History
clopidogrel 75 mg tablet 75 mg PO DAILY #90 tabs 11/23/23 Rx
STS%
STS %: 3.79
Review of Systems
-
History Source: Patient
General: Reports Fatigue
HEENT: Reports No Symptoms
Respiratory: Reports ODONNELL
Cardiac: Reports Chest Pain
Abdomen/GI: Reports No Symptoms
: Reports No Symptoms
Musculoskeletal: Reports No Symptoms
Skin: Reports No Symptoms
Neurological: Reports No Symptoms
Vascular: Reports No Symptoms
Physical Exam
Vital Signs
Temp 98.0 F 10/16/24 07:18
Temp route: Temporal 10/16/24 07:18
Pulse 78 10/16/24 07:18
Resp Rate 18 10/16/24 07:18
Blood pressure 142/77 10/16/24 07:05
MAP (cuff-Nilsa Monitor) 99 10/16/24 07:05
SaO2 98 10/16/24 07:18
Oxygen Mode of Delivery Room air 10/16/24 07:18
Can the patient verbally communicate their pain? Yes 10/16/24 07:18
Actual Weight 70.307 kg 10/16/24 07:24
Body Mass Index (BMI) 25.8 10/16/24 07:24
Labs
10/08/2024
HH: 14.4/42.2
Plt: 146K
BUN/Creatinine: 27/0.9
GFR>60
Diagnostic Studies
Echocardiogram 09/17/2024
CONCLUSIONS
Normal left ventricular systolic function.
Moderate concentric left ventricular hypertrophy.
Left ventricular ejection fraction is 65-70%.
Severe aortic stenosis.
Mild aortic regurgitation.
Compared to the previous report 10/20/2023 findings are similar. Aortic
gradients are unchanged. LVH now reported as moderate in the recorded wall.
The reported wall thickness is greater on current study. Some of this may be
related to measurement technique and image quality some of the differences may
be related to image quality and measurement technique
Aortic Valve
Thickened trileaflet aortic valve. Peak/mean gradients across the aortic valve
are 70/38mmHg. Using an LVOT diameter of 2.0cm. The aortic valve by the
Continuity equation is calculated at 0.8cm2. Severe aortic stenosis. Mild
aortic regurgitation
Cardiac Catheterization 10/16/2024
CONCLUSIONS:
1. Right dominant circulation with luminal irregularities throughout the entire coronary tree, a 50% lesion in the terminal RPDA, several 30-40% lesions in OM 2 and patent stents in the second diagonal, mid LAD and distal LAD with no evidence of
ISR.
2. Mildly elevated filling pressures (PCWP = 17 mmHg at 70.3 kg).
3. Severe aortic valve stenosis by echocardiography.
RECOMMENDATIONS:
1. Expectant management after cardiac catheterization via right radial/antecubital approach.
2. Limited weight bearing on the right wrist for one week.
3. TAVR/SAVR evaluation.
Cardiac Catheterization 11/23/2023:
CONCLUSIONS
1: Moderate to severe aortic stenosis. There is severe fluoroscopic calcification of the valve
2: Severe single-vessel CAD as described. The previously placed LAD and diagonal stents are widely patent. 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
3. Successful stenting of distal LAD stenosis using 2.25 x 18 Xience ROYA postdilated with a 2.5 noncompliant balloon with outstanding final result
4. Recommend dual antiplatelet therapy for 12 months and continued risk factor modification efforts. I would use an LDL goal of less than 55 for this patient given the presence of diffuse luminal disease and multiple events
12/04/2023 Carotid Ultrasound:
IMPRESSION: Negative for flow-limiting carotid stenosis. By velocity criteria, any internal carotid artery stenosis present is in the range of 0-49%.
Procedure Type:�Isolated AVR
Perioperative Outcome Estimate %
Operative Mortality 3.79%
Morbidity & Mortality 14.5%
Stroke 1.47%
Renal Failure 1.82%
Reoperation 6.28%
Prolonged Ventilation 6%
Deep Sternal Wound Infection 0.057%
Long Hospital Stay (>14 days) 4.89%
Short Hospital Stay (<6 days)* 41.2%
Exam
General: Well Developed, Well Nourished, No Apparent Distress and Comfortable
HEENT: Normocephalic
Neck: Trachea Midline
Respiratory: Clear
Cardiac: Regular Rhythm and Murmur (III/ JOSE)
GI: Soft and Non Tender
Rectal: Deferred by Provider
Skin: Warm and Dry
Neuro: Awake, Alert, Oriented and AO x 3
Psych: Calm
Assessment / Plan
-
Aortic Stenosis
Continue with TAVR evaluation
Trend creatinine after contrast (Rx given)
TAVR CT scan (10/30/2024)
CT surgical consult (11/05 MPT)
Frailty testing and KCCQ12 at consult
Dental clearance
Continue aspirin and plavix
Heart team discussion
CAD (PCI LAD, D1)
Continue aspirin/plavix/ atorvastatin/ carvedilol
Data Reviewed
-
EKG: Tracing Personally Visualized and interpreted (NSR) and Report Reviewed by me
Email Marketing Executive: Report Reviewed by me and Discussed with Physician
Echo: Report Reviewed by me and Discussed with Physician
Labs: Labs Reviewed by me
Old Records: Reviewed (Drs. Heller and Anthony's office note)
Total Time Spent with Patient (in minutes): 45
--- NOTE | 2024-10-16 08:16 | ITS.CL.CATH ---
Camera Tuning Engineer - Catheterization
Cardiac Catheterization
Procedure Report:
CARDIAC CATHETERIZATION REPORT
Date of Procedure: 10/16/2024
Referring: Brad Heller M.D.
Indication: Known coronary artery disease, severe aortic valve stenosis.
PROCEDURE:
1. Right heart catheterization.
2. Coronary angiography.
A total of 14 minutes of procedural/moderate sedation was utilized. An independent medical scientific officer was present to assist with and help manage the patient's level of consciousness and physiologic status.
ACCESS:
1. 6 [place]i right radial artery using modified Seldinger technique.
2. 5 [place]i right antecubital vein using a previously placed IV.
CATHETERS:
1. 5 [place]i balloon with.
2. 5 [place]i JR4.
3. 5 [place]i JL 3.5.
HEMODYNAMIC DATA
Weight (kg): 70.3
AO (s/d/x, mmHg): 117/62/84
LV (s/x, mmHg): Not obtained.
PCWP (a/v/x, mmHg):
PA (s/d/x, mmHg):
RV (s/x, mmHg): 35/13
RA (a/v/x, mmHg): 16
SVC SvO2 (%): 71.1
IVC SvO2 (%): Not obtained.
RA SvO2 (%): Not obtained.
RV SvO2 (%): Not obtained.
PA SvO2 (%): 66.4
SaO2 (%): 93.7
Hbg (g/dL): 12.4
NELI
CO (L/min): 4.33
CI (L/min/m2): 2.44
Thermodilution
CO (L/min): Not performed.
CI (L/min/m2): Not performed.
TPG (mmHg): 4
PVR (Marcial Units): 0.92
SVR (dynes*seconds*cm^-5): 1312
AVO2 Diff (Volume %): [ ]
AV gradient (x, mmHg): Not obtained.
AV area (cm2): Not obtained.
MV gradient (x, mmHg): Not obtained.
MV area (cm2): Not obtained.
LEFT VENTRICULOGRAPHY: Not performed.
AORTOGRAPHY: Not performed.
CORONARY ANGIOGRAPHY
Dominance: Right.
Left Main: Normal size, bifurcating vessel. There is no coronary artery disease.
LAD: Normal size vessel giving rise to 2 significant diagonals. Patent stents are visible in the second diagonal as well as the mid and distal LAD. The stents are widely patent with no evidence of ISR. There are minor luminal irregularities
with diffuse, moderate disease throughout the entire coronary tree.
Ramus: Congenitally absent.
Circumflex: Normal size, nondominant vessel giving rise to 2 obtuse marginals. OM1 is a 1.5 mm vessel arising very high off of the circumflex. OM 2 has several 30% and 40% lesions.
RCA: Large size, dominant vessel with a large posterolateral arcade. There are luminal irregularities throughout. There is a 50% lesion in the terminal RPDA.
INTERVENTIONS
None.
Closure Device: Vascular band for the right radial artery, manual pressure for the right antecubital vein.
Radiation dose (mGy): 207.46
DAP (cm2.Gy): 14.0071
Fluoroscopy time (minutes): 2.7
CONCLUSIONS:
1. Right dominant circulation with luminal irregularities throughout the entire coronary tree, a 50% lesion in the terminal RPDA, several 30-40% lesions in OM 2 and patent stents in the second diagonal, mid LAD and distal LAD with no evidence of
ISR.
2. Mildly elevated filling pressures (PCWP = 17 mmHg at 70.3 kg).
3. Severe aortic valve stenosis by echocardiography.
RECOMMENDATIONS:
1. Expectant management after cardiac catheterization via right radial/antecubital approach.
2. Limited weight bearing on the right wrist for one week.
3. TAVR/SAVR evaluation.
Copy to: Brad Heller M.D., Amaury Polanco M.D.
Fermin Cruz DO, FACC, FACP
[2024-10-16] MEDS: NSS 315 IV (09:30)
== END 2024-10-16 13:00 | disposition home or self-care (01) ==
LOC: CATH 06:22
PROVIDERS: ATTENDING PHYSICIAN Internal Medicine Cardiovascular Disease; FAMILY PHYSICIAN Family Medicine; OTHER PHYSICIAN Internal Medicine Cardiovascular Disease
DX: I25.10 Atherosclerotic heart disease of native coronary artery without angina pectoris (principal); I35.0 Nonrheumatic aortic (valve) stenosis; I10 Essential (primary) hypertension; E78.5 Hyperlipidemia, unspecified; G47.33 Obstructive sleep apnea (adult) (pediatric); N40.0 Benign prostatic hyperplasia without lower urinary tract symptoms; Z95.5 Presence of coronary angioplasty implant and graft; Z79.02 Long term (current) use of antithrombotics/antiplatelets; Z79.82 Long term (current) use of aspirin
CPT/HCPCS: 99152; C1894; 93451; Q9967

== ENCOUNTER → 2024-10-21 06:28 | Outpatient (REF) | payer MEDICARE, SELFPAY ==
[2024-10-21 07:59] LABS: Blood Urea Nitrogen 16 mg/dl (9-20); Calcium 9.2 mg/dl (8.4-10.2); Carbon Dioxide 28 mmol/L (22-30); Chloride 103 mmol/L (98-107); Glucose 139 mg/dl (70-99); Potassium 4.4 mmol/L (3.5-5.1); Sodium 138 mmol/L (135-145); eGFR > 60.00
== END ==
LOC: REG 06:28
PROVIDERS: ATTENDING PHYSICIAN Nurse Practitioner Acute Care; FAMILY PHYSICIAN Family Medicine
DX: I35.0 Nonrheumatic aortic (valve) stenosis (principal)
CPT/HCPCS: 36415; 80048

== ENCOUNTER → 2024-10-30 09:17 | Outpatient (REF) | payer MEDICARE, SELFPAY | LOC: RAD 09:17 | PROVIDERS: ATTENDING PHYSICIAN Nurse Practitioner Acute Care | DX: I35.0 Nonrheumatic aortic (valve) stenosis (principal) | CPT/HCPCS: 74174; 75572; Q9967 ==

== ENCOUNTER 2024-12-12 05:29 | Inpatient (IN) | payer MEDICARE, SELFPAY ==
--- NOTE | 2024-12-03 07:41 | HPS.HSE ---
Family Physician
-
Family Physician: Amaury Polanco
Chief Complaint
-
Fatigue
preop TAVR
History of Present Illness
Mr. Lott is a pleasant 73 yom with a past medical history significant for , CAD (recent stent to LAD and D1), HLD, DEIDRA, and HTN. His echocardiogram from 09/17/2024 is notable for an EF 65-70%, AV P/M 70/38, LAURA 0.8, pk arias. 4.21, mild , MAC with
no MR, trace TR, PAP 25-30. From a symptomatology standpoint Mr. Lott describes an increase in fatigue, he denies CP or dizziness. He states he was walking about 2 miles daily up until 2 months ago and has stopped d/t fatigue. Discussed the
pathophysiology and treatment options of including SAVR and TAVR. Spoke about lifelong planning about the durability of AVR and the potential for another GABI in the future. Reviewed the difference between SAVR and TAVR and the benefits of each.
Mr. Lott has been reviewed with the heart team and recommended for TF TAVR utilizing a 26mm S3 via right transfemoral access. His TAVR is scheduled for 12/12/2024.
Reviewed medication list with patient and he will continue aspirin, plavix and he will begin holding fish oil until after the TAVR. He will arrive to the [facility] at 0530. Reviewed the risks of the procedure as discussed in consult including
stroke, ppm, and vascular injury. Informed Mr. Lott he will get a phone call from the heart team the Monday before TAVR to confirm time and location of arrival. Allowed for and answered questions.
Medical History
Past Medical History
Past Medical History: Reports HTN, Valvular Disease (aortic stenosis) and Other (BPH, diverrticulitis, hemorrhoids, DEIDRA, colon polyps)
Past Surgical History: Reports Cardiac (stents (2019& 2023)) and Other (bilateral inguinal hernia repair, inguinal hernia removal, repair of recurrent right inguinal hernia with mesh)
Social History
Tobacco: Non-smoker
Alcohol: None
Drug: None
Personal:
Living: With Family
Employment: Retired
Family History
Family History: Cancer and Diabetes
Allergies / Home Medications
Allergies reflects when Allergies were last updated in [employer].
Sulfa-Hives
Home Medications with original date entered in [employer]
Apple Cider Vinegar 500 MG Tablet 1 tablespoons Orally Twice a Day
Aspirin 81(Aspirin) 81 MG Tablet Delayed Release 1 tablet Orally Once a day
Atorvastatin Calcium 40 MG Tablet 0.5 tablet Orally Once a day
Carvedilol 6.25 MG Tablet 1 tablet with food Orally Twice a day
Clopidogrel Bisulfate 75 MG Tablet 1 tablet Orally Once a day
Fish Oil 1000 MG Capsule 2 capsules Orally Once a Day
Shaneka Root 550 MG Capsule 2 caps Orally Once a Day
Magnesium
Multivitamin(Multiple Vitamin) - Tablet 1 tablet Orally Once a day
Niacinamide 500 MG Tablet 1 tablet Orally Once a day
Potassium Gluconate 550 MG Tablet 1 tablet Orally Once a day
Turmeric 500 MG Capsule 2 tablets Orally Once a Day
Ubiquinol 100 MG Capsule as directed Orally Once a Day
Vitamin B-1Vitamin B12 1000 MCG Tablet Extended Release 2 Orally Once a day , Notes to Pharmacist: 1500Vitamin D3 1000 UNIT take 1 tablet by oral route once daily.
Zinc 100 MG Tablet 1 tablet Orally Once a day
Allergy/Medication List:
Sulfa
Review of Systems
-
History Source: Patient
A 12 point ROS was completed and negative except as noted: Yes
Constitutional: Reports Fatigue
Physical Exam
Physical Exam
General: Well Developed, Well Nourished, No Apparent Distress and Comfortable
HEENT: NormoCephalic and PERRLA
Respiratory: Clear
Cardiac: Regular Rhythm, Bradycardia and Murmur (III/ JOSE)
GI: Soft, Non Tender and Non Distended
Rectal: Deferred by Provider
Genito-urinary: Deferred by me
Musculoskeletal: No Edema
Skin: Warm and Dry
Neuro: Awake, Alert, Oriented and AO x 3
Psych: Calm
Data Reviewed
-
CT Scan: Report Reviewed by me and Discussed with Physician (Reviewed with the heart team)
Medical Tests (Nuc Med, Echo, EKG etc): Report Reviewed by me and Discussed with Physician (cardiac catheterization and echocardiogram reviewed with the heart team)
Lab Data: Labs Reviewed by me
Old Records: Reviewed
Impression/Plan
-
IMPRESSION/PLAN:
Aortic stenosis-Scheduled for 12/12/[address] Joaquin and Anthony utilizing a 26mm S3 via right transfemoral access
Continue Aspirin and plavix
Fish oil held until after TAVR
POD#1/#30 echocardiogram
Cardiac rehab consult
Lab Results
-
Lab Results
WBC 7.4 10^3/uL (4.8-10.8) 12/03/24 10:05
RBC 4.45 10^6/uL (4.70-6.10) L 12/03/24 10:05
Hgb 14.3 g/dL (13.0-18.0) 12/03/24 10:05
Hct 42.1 % (39.0-52.0) 12/03/24 10:05
MCV 94.6 fL (80.0-94.0) H 12/03/24 10:05
MCH 32.1 pg (27.0-31.0) H 12/03/24 10:05
MCHC 34.0 g/dL (33.0-37.0) 12/03/24 10:05
RDW 13.6 % (11.5-14.5) 12/03/24 10:05
Abs Immat Gran (auto) 0.0 10^3/uL (0-0.05) 12/03/24 10:05
Absolute Neuts (auto) 4.6 10^3/uL (1.4-6.5) 12/03/24 10:05
Absolute Lymphs (auto) 1.6 10^3/uL (1.2-3.4) 12/03/24 10:05
Absolute Monos (auto) 0.6 10^3/uL (0.1-0.6) 12/03/24 10:05
Absolute Eos (auto) 0.6 10^3/uL (0-0.7) 12/03/24 10:05
Absolute Basos (auto) 0.1 10^3/uL (0-0.2) 12/03/24 10:05
Immature Gran % 0.1 % (0-0.5) 12/03/24 10:05
Neutrophils % 61.6 % (42.2-75.2) 12/03/24 10:05
Lymphocytes % 21.4 % (20.5-51.1) 12/03/24 10:05
Monocytes % 8.3 % (1.7-9.3) 12/03/24 10:05
Eosinophils % 7.4 % (0-6) H 12/03/24 10:05
Basophils % 1.2 % (0-2) 12/03/24 10:05
Nucleated RBC % 0 % (-) 12/03/24 10:05
PT 15.2 Sec (11.4-14.6) H 12/03/24 10:05
INR 1.17 12/03/24 10:05
APTT 32.9 Sec (23.4-35.0) 12/03/24 10:05
Sodium 140 mmol/L (135-145) 12/03/24 10:05
Potassium 5.1 mmol/L (3.5-5.1) 12/03/24 10:05
Chloride 106 mmol/L (98-107) 12/03/24 10:05
Carbon Dioxide 26 mmol/L (22-30) 12/03/24 10:05
BUN 16 mg/dl (9-20) 12/03/24 10:05
Creatinine 0.8 mg/dL (0.7-1.3) 12/03/24 10:05
Estimated Creat Clear 72 ml/min 12/03/24 10:05
eGFR > 60.00 12/03/24 10:05
Glucose 117 mg/dl (70-99) H 12/03/24 10:05
Hemoglobin A1c 5.7 % (4.0-5.6) H 12/03/24 10:05
Calcium 9.3 mg/dl (8.4-10.2) 12/03/24 10:05
Total Bilirubin 1.7 mg/dl (0.2-1.3) H 12/03/24 10:05
Direct Bilirubin 0.2 mg/dl (0.0-0.4) 12/03/24 10:05
AST 48 U/L (17-59) 12/03/24 10:05
ALT 51 U/L (0-50) H 12/03/24 10:05
Alkaline Phosphatase 111 U/L (38-126) 12/03/24 10:05
Haj-X-Uniblghclrv Pept 281 pg/ml 12/03/24 10:05
Total Protein 6.4 g/dl (6.3-8.2) 12/03/24 10:05
Albumin 3.7 g/dl (3.5-5.0) 12/03/24 10:05
Urine Color Yellow 12/03/24 10:09
Urine Clarity Clear (Clear) 12/03/24 10:09
Urine pH 6.0 (5.0-9.0) 12/03/24 10:09
Ur Specific [place] 1.015 (<1.030) 12/03/24 10:09
Urine Ketones Negative (Negative) 12/03/24 10:09
Ur Occult Blood Reflex 2+ (Negative) A 12/03/24 10:09
Urine Nitrite (Reflex) Negative (Negative) 12/03/24 10:09
Urine Bilirubin Negative (Negative) 12/03/24 10:09
Urine Urobilinogen Negative (Neg - 1+) 12/03/24 10:09
Leukocyte Esterase Rfl Negative (Negative) 12/03/24 10:09
Urine RBC 3-6 /HPF (0-2) A 12/03/24 10:09
Urine WBC (Reflex) 0-2 /HPF (0-5) 12/03/24 10:09
Ur Squamous Epith Cells 0-2 /LPF (Few) 12/03/24 10:09
Urine Bacteria (Reflex) Few (Negative) A 12/03/24 10:09
Urine Glucose Negative (Negative) 12/03/24 10:09
Urine Albumin (Reflex) Negative (Neg - Trace) 12/03/24 10:09
[2024-12-03 09:54] VITALS: BMI 26.9
--- NOTE | 2024-12-03 11:16 | CM ---
Chart reviewed. Met with the patient and his in PAT. Reviewed preoperative and postoperative instructions, along with showering guidelines. Gave patient 2 soaps. Patient is agreeable to a home visit by CT Transitional RN. Patient is
independent of ADLS, lives with his in a split level home, 0 MARGARITA, 0 DME. Plan is for the patient to return home with CT Transitional RN.
[2024-12-03 11:18] LABS: INR 1.17; PT 15.2 Sec (11.4-14.6)
[2024-12-03 11:19] LABS: APTT 32.9 Sec (23.4-35.0)
[2024-12-03 11:28] LABS: Urine Albumin Negative (Neg - Trace); Urine Bilirubin Negative (Negative); Urine Character Clear (Clear); Urine Color Yellow; Urine Glucose Negative (Negative); Urine Ketone Negative (Negative); Urine Leukocyte Negative (Negative); Urine Nitrite Negative (Negative); Urine Occult Blood 2+ (Negative); Urine Specific Gravity 1.015 (<1.030); Urine Urobilinogen Negative (Neg - 1+)
[2024-12-03 12:01] LABS: Glycohemoglobin (HgbA1c) 5.7 % (4.0-5.6)
[2024-12-03 12:06] LABS: % Basophils 1.2 % (0-2); % Eosinophils 7.4 % (0-6); % Immature Granulocytes 0.1 % (0-0.5); % Lymphocytes 21.4 % (20.5-51.1); % Monocytes 8.3 % (1.7-9.3); % Neutrophils 61.6 % (42.2-75.2); Absolute Basophils 0.1 10^3/uL (0-0.2); Absolute Eosinophils 0.6 10^3/uL (0-0.7); Absolute Lymphocytes 1.6 10^3/uL (1.2-3.4); Absolute Monocytes 0.6 10^3/uL (0.1-0.6); Absolute Neutrophils 4.6 10^3/uL (1.4-6.5); Hematocrit 42.1 % (39.0-52.0); Hemoglobin 14.3 g/dL (13.0-18.0); Mean Corpuscular Hgb 32.1 pg (27.0-31.0); Mean Corpuscular Volume 94.6 fL (80.0-94.0); Nucleated Red Blood Cells % 0 % (-); Red Blood Cell Count 4.45 10^6/uL (4.70-6.10); Red Cell Dist. Width 13.6 % (11.5-14.5); White Blood Cell Count 7.4 10^3/uL (4.8-10.8)
[2024-12-03 12:14] LABS: ALT (SGPT) 51 U/L (0-50); AST (SGOT) 48 U/L (17-59); Albumin 3.7 g/dl (3.5-5.0); Alkaline Phosphatase 111 U/L (38-126); Blood Urea Nitrogen 16 mg/dl (9-20); Calcium 9.3 mg/dl (8.4-10.2); Carbon Dioxide 26 mmol/L (22-30); Chloride 106 mmol/L (98-107); Direct Bilirubin 0.2 mg/dl (0.0-0.4); Estimated Creatinine Clearance 72 ml/min; Glucose 117 mg/dl (70-99); Potassium 5.1 mmol/L (3.5-5.1); Sodium 140 mmol/L (135-145); Total Bilirubin 1.7 mg/dl (0.2-1.3); Total Protein 6.4 g/dl (6.3-8.2); eGFR > 60.00
[2024-12-03 12:15] LABS: NT-proBNP 281 pg/ml
[2024-12-03 12:28] LABS: Urine Bacteria Few (Negative); Urine Squamous Cell 0-2 /LPF (Few); Urine White Cell 0-2 /HPF (0-5)
[2024-12-03 13:11] LABS: Mean Platelet Volume 11.9 fL (7.4-10.4); Platelet Count 85 10^3/uL (130-400)
[2024-12-12] VITALS (15 sets, daily range): BP systolic 116–166; BP diastolic 56–78; BMI 26.0
--- NOTE | 2024-12-12 06:12 | W.CVOR.SURPR ---
CVOR Surgeon Immed Pre Op
-
I have examined this patient prior to performance of the scheduled procedure.
The patient's condition is unchanged from the time of the dictated/written History and
Physical and the patient is able to undergo the scheduled procedure.
--- NOTE | 2024-12-12 06:21 | PTCARENOTE ---
Received direct TAVR admit into room 2246. Patient ambulated self into room w/ spouse at bedside. Patient AAOx3, Tele monitor applied briefly w/ a rhythm of SR. B/l BPs obtained. Neuro intact. No edema noted and left DP weak and right DP pulse +.
IV inserted w/out difficulty, ABO2 collected and sent to lab. Patient reports having nothing to eat since last night. Patient took his 81mg of Aspirin and 75mg of Plavix at 05:00 w/ small sips of water. Pt clipped and CHG wipes performed. Home med
rec complete with patient.
[2024-12-12] MEDS: ANCEF 10 IV ×2 (07:38)
--- NOTE | 2024-12-12 08:20 | W.IMMPOSTOP ---
Surgical Immed Post Op Note
-
[id number]
STRUCTURAL HEART PROCEDURE NOTE: TAVR
Preoperative Dx:
Severe aortic stenosis (P/M: , LAURA 0.8, Operations Support Representative 4.21)
LVH
CAD s/p ROYA
HTN/HLD
BPH
DEIDRA
Inguinal hernias s/p B/L repair
Colon polyps
Postoperative Dx:
Same
Procedures:
1) R STUDENT DRIVING INSTRUCTOR access w/ tactile, U/S, and fluoroscopic guidance, micropuncture technique, limited angiography, 8Fr dilator placement
2) Perclose placement x 2 to R STUDENT DRIVING INSTRUCTOR, 8Fr sheath placement
3) L CFV access w/ U/S and fluoroscopic guidance, micropuncture technique, long 6Fr sheath placement
4) L STUDENT DRIVING INSTRUCTOR access w/ tactile, U/S, and fluoroscopic guidance, micropuncture technique, limited angiography, long 6Fr sheath placement
5) Placement of temporary RV pacing wire, threshold testing
6) Placement of pigtail catheter in RCC w/ limited aortography & confirmation of co-planar valve deployment angles
7) Placement of Edward E-sheath vis R STUDENT DRIVING INSTRUCTOR access (systemic heparinization)
8) Wire purchase across stenotic AV (AL-1, soft-tip straight, J-wire, soft-tip straight, LVEDP assessment (18mmHg), extra-stiff)
9) R TF TAVR w/ placement of 26mm ABY 3 RESILIA valve
10) Completion aortography
11) Completion TTE (mean gradient 6mmHg, no AI/PVL)
12) Removal of pxidg-yxemeqfk-zluujo; Edward E-sheath w/ R STUDENT DRIVING INSTRUCTOR mgmt w/ perclose sutures x 2; manual pressure
13) Completion R ileofemoral angiography
14) Removal of L STUDENT DRIVING INSTRUCTOR 6Fr sheath w/ mgmt w/ 6Fr angioseal; manual pressure
15) Removal of L CFV 6Fr sheath w/ mgmt w/ manual pressure (protamine)
Rn Circulating:
Dr. Fermin Cruz
Cardiac Surgeon:
Dr. Carrillo Joaquin
Anesthesia:
MAC & local to B/L groins
Implants:
Turk ABY 3 26mm RESILIA valve; [id number]
Perclose x 2 to R STUDENT DRIVING INSTRUCTOR
6Fr angioseal x 1 to L STUDENT DRIVING INSTRUCTOR
Cath Data:
Start: 0739hrs, Deploy: 0806hrs, End: 0816hrs
FT: 8.4min, mGy: 309.83, DAP: 34.9855, Contrast: 105mL
Post-TTE: mean gradient 6mmHg, no AI/PVL
LVEDP: 18mmHg
Complications:
None
Condition:
Stable to recovery
--- NOTE | 2024-12-12 08:26 | ITS.CL.TAVR ---
Medical Numerical Control Operator - TAVR Report
TAVR PRocedure
Procedure Report:
TRANSCATHETER AORTIC VALVE REPLACEMENT REPORT
Date: 12/12/2024
Referring physician: Brad Heller M.D.
Preop diagnosis: Severe aortic valve stenosis.
Postop diagnosis: Severe aortic valve stenosis.
Procedure: Transcatheter aortic valve replacement (TAVR) using a #26 Turk MULU S3 Ultra Resilia THV.
Operators: Fermin Cruz DO, Matthew Thomas, M.D.
Findings: Severely calcified and stenotic aortic valve.
Anesthesia: Conscious sedation was provided by the anesthesia staff.
Estimated blood loss: Negligible.
Complications: None.
Condition: Stable
Procedure:
The patient was brought to the cardiac asset availability leader after consent and was prepped and draped in standard sterile fashion. Conscious sedation was provided by the anesthesia staff. After a 'Time Out,' bilateral common femoral arteries and the left
common vein were access using a modified Seldinger technique with a micropuncture kit under ultrasound guidance. A 6 Armenian sheath was placed in the left femoral vein. Angiography performed through the micropuncture sheath confirmed satisfactory
arterial placement in the left common femoral artery. The micropuncture sheath was replaced with a 6Fr sheath in the left ATHLETIC SHOE DESIGNER. Angiography through the micropuncture kit confirmed satisfactory arterial placement in the right common femoral artery.
The right ATHLETIC SHOE DESIGNER was dilated with an 8FR dilator and preclosed with two Perc-Close devices. An 8Fr sheath was placed in the RCFA. A temporary pacing wire was advanced through the left femoral vein and into the right ventricle. The pacemaker
demonstrated good capture and was set to back up. A 5Fr pigtail catheter was advanced through the left femoral sheath and seated in the right coronary cusp. Angiography confirmed co-planar angles.
An AL-1 catheter was advanced through the 8Fr sheath, the J wire was exchanged for an Amplatz Superstiff wire and the catheter and the 8 Fr sheath was removed. The 14 Fr Turk E-sheath was inserted over the wire and into the descending aorta.
Heparin 6000 units was given. The MULU S3 was prepared on the back table. Orientation was confirmed by both physicians. The AL-1 catheter was re-advanced through the E-sheath to the level of the ascending aorta. The Superstiff wire was removed
and a soft tip straight wire was advanced through the AL-1. The straight tip wire was used to cross the aortic valve and the catheter was advanced into the left ventricle. The straight wire was removed and an Amplatz Extrastiff wire with curved
proximal end was advanced through the catheter and into the left ventricle. The wire was seated in the apex and the catheter was removed. ACT was checked and confirmed to be > 250 seconds.
The valve was advanced over the Extrastiff wire and into the descending aorta. The balloon was withdrawn and the valve was mounted on the balloon. The valve was advanced over the aortic arch and into the aortic valve annulus. The pusher device
was withdrawn to allow for balloon expansion. Low volume aortography confirmed good position of the valve. The valve was deployed during rapid ventricular pacing. Echocardiography and aortography confirmed a good result with no aortic valve
insufficiency and a 6 mmHg mean gradient. The valve deployment system was removed. The Turk E sheath was then removed and hemostasis obtained with the two Perc-Close sutures. Final angiography demonstrated no evidence of ileofemoral
dissection/perforation and good runoff below the common femoral artery. The pacemaker and the pigtail catheter were removed. The left femoral artery sheath was removed using a 6 Armenian Angio-Seal. The left femoral venous sheath was removed and
manual pressure was applied with excellent hemostasis.
Radiation
Dose (mGy): 309.83
DAP (cm2.Gy): 34.9855
Fluoroscopy time (minutes): 8.4
TAVR Echo Gradient (mmHg): 6
LV (s/x, mmHg): 145/18
TAVR Cath Gradient (mmHg): Not obtained.
Conclusions:
1. Successful placement of #26 Mulu S3 Ultra Resilia aortic valve via right transfemoral approach with no acute complications.
Fermin Cruz DO, FACC, FACP
Copy to: Brad Heller M.D., Amaury Polanco M.D.
--- NOTE | 2024-12-12 09:13 | W.PN.UPDATE ---
Update Note
Progress Note Update
Reviewed Mr. Lott with the heart team in the preTAVR SDM meeting and confirmed a 26mm S3 resilia via right TF access. Patient will resume aspirin and plavix post TAVR. # 26mm S3 resilia (serial# [id number]) successfully deployed via right
transfemoral access. Post implant MG 6 mmHg.
--- NOTE | 2024-12-12 09:52 | PTCARENOTE ---
Rec'd pt from laborer carpentry dock. B/l groin sites are c/d/i. No hematoma/bleeding noted. Neurologically intact. See worklist. Pt has no complaints at this time. Tele- SB. HR 40-50s. Pt sating 100% RA. Activity restrictions reviewed w/ pt and spouse and
verbalizes understanding. Pt currently in bed; call david w/in reach.
[2024-12-12] MEDS: VITAMIN D3 (cholecalciferol) PO (10:52)
[2024-12-12] MEDS: THERAGRAN PO (10:52)
[2024-12-12 11:23] LABS: ACT-LR - POC > 397 Seconds (116-155)
--- NOTE | 2024-12-12 11:24 | CM ---
Chart reviewed. Patient is in the OR today. Patent is independent of ADLS, lives with his in a split level house, 0 MARGARITA, 0 DME. Plan is for the patient to return home with CT Transitional RN. CM to follow
[2024-12-12] MEDS: ZINC PO (11:29)
[2024-12-12] MEDS: ASPIR LOW (ENTERIC COATED) 81 MG PO (11:30)
[2024-12-12] MEDS: ANCEF 5 IV (15:02)
[2024-12-12] MEDS: COREG 6.25 MG PO (19:36)
[2024-12-12] MEDS: LIPITOR 20 MG PO (22:16)
--- NOTE | 2024-12-12 23:15 | PTCARENOTE ---
PT. AAOx3. Neuro checks WNL, NSR on the monitor, VSS. B/L groin dressing CDI without drainage, no hematoma assessed, peripheral circulation intact and WNL. Complaining of left groin discomfort (level 0.5) but refusing Tylenol. No complaints of
chest pain/discomfort. Pt. currently sleeping.
[2024-12-13 02:49] VITALS: BMI 26.1
[2024-12-13 02:52] VITALS: BP 163/67
[2024-12-13 03:24] LABS: Hematocrit 38.8 % (39.0-52.0); Hemoglobin 13.8 g/dL (13.0-18.0); Mean Corp Hgb Conc. 35.6 g/dL (33.0-37.0); Mean Corpuscular Hgb 32.5 pg (27.0-31.0); Mean Corpuscular Volume 91.5 fL (80.0-94.0); Mean Platelet Volume 11.6 fL (7.4-10.4); Platelet Count 81 10^3/uL (130-400); Red Blood Cell Count 4.24 10^6/uL (4.70-6.10); Red Cell Dist. Width 13.8 % (11.5-14.5); White Blood Cell Count 11.5 10^3/uL (4.8-10.8)
[2024-12-13 03:42] LABS: Blood Urea Nitrogen 20 mg/dl (9-20); Calcium 8.6 mg/dl (8.4-10.2); Carbon Dioxide 20 mmol/L (22-30); Chloride 109 mmol/L (98-107); Estimated Creatinine Clearance 72 ml/min; Glucose 118 mg/dl (70-99); Potassium 4.4 mmol/L (3.5-5.1); Sodium 138 mmol/L (135-145); eGFR > 60.00
[2024-12-13 05:27] VITALS: BP 148/68
[2024-12-13] MEDS: COREG 6.25 MG PO (05:27)
--- NOTE | 2024-12-13 06:41 | W.PN.CT ---
Today's Communication / Plan
-
-pod #1
-no issues overnight
-nsr, no denice or pause overnight
-ECG without change
-Echo today
-current meds (ASA, Plavix, Coreg, Lipitor)
-ambulate, possible d/c
Assessment / Plan
-
- Severe symptomatic - s/p R TF TAVR w/ placement of 26mm ABY 3 RESILIA valve on 12/12/24, pod #1
- LVEDP 18 mmHg
- Post-TTE: mean gradient 6mmHg, no AI/PVL
- LVH
- CAD s/p ROYA
- HTN/HLD
- BPH
- DEIDRA
- Inguinal hernias s/p B/L repair
- Colon polyps
Discussed patient care with: Nursing and Care Team
Subjective
-
Date of Service: December 13, 2024
Objective Data
-
Lab Results
12/13/24 03:00
12/13/24 03:00
PT 15.2 Sec (11.4-14.6) H 12/03/24 10:05
INR 1.17 12/03/24 10:05
APTT 32.9 Sec (23.4-35.0) 12/03/24 10:05
Vital Signs
Vital Signs
Temp Pulse Resp BP Pulse Ox
99.9 F 65 16 148/68 98
12/13/24 02:50 12/13/24 06:00 12/13/24 02:50 12/13/24 05:27 12/13/24 02:50
CT Intake/Output/Weight
12/12/24 12/12/24 12/13/24
06:59 18:59 06:59
Intake Total 1300 / 1780 480 / 1780
Output Total 350 / 350
Balance 950 / 1430 480 / 1430
SaO2: 98
Physical Exam
-
General: Awake and AOx3
Cardiovascular: Regular rate & rhythm, No Murmurs and No Rub
Respiratory: Decreased Breath Sounds
Incision: Other (groins are cdi, soft, nontender, no hematoma b/l)
Extremities: No Edema
Abdomen: soft, nontender, nondistended, + bowel sounds
Data Reviewed
-
Lab Results: Results Reviewed
Medications: Active Meds Reviewed
Chest X-Ray: Report Reviewed and Image Reviewed
ECG: Report Reviewed and Image Reviewed
[2024-12-13 07:10] VITALS: BP 145/62
--- NOTE | 2024-12-13 07:17 | W.PN.ANS.POP ---
Anesthesia Post Operative
- Anesthesia Post Op Note
Vital Signs Stable-See Nursing Note: Yes
Airway Patent: Yes
Adequate Pain Control: Yes
Change in Mental Status: No
Current Postoperative Nausea & Vomiting: No
Anesthesia Complications: No
General Anesthetic Recall: No
Unplanned Admission: No
Post Op Hydration Adequate: Yes
[2024-12-13] MEDS: ASPIR LOW (ENTERIC COATED) 81 MG PO (08:23)
[2024-12-13] MEDS: VITAMIN D3 (cholecalciferol) 50 MCG PO (08:23)
[2024-12-13] MEDS: THERAGRAN 1 TABLET PO (08:23)
[2024-12-13] MEDS: ZINC 50 MG PO (08:23)
[2024-12-13] MEDS: PLAVIX 75 MG PO (08:23)
--- NOTE | 2024-12-13 09:01 | W.PN.CD ---
Today's Communication / Plan
-
Echo pending.
Discharge planning (assuming no issues on echo).
CBC in one week to monitor platelets.
Impression / Plan
-
Impression/Plan: 74 y/o male with CAD s/p prior PCI, HLD, HTN, DEIDRA, thrombocytopenia and severe, symptomatic aortic valve stenosis admitted for elective TAVR.
#Severe
-Chronic, progressive.
-S/P #26 Turk MULU S3 Resilia TAVR via a right transfemoral approach.
-Telemetry is benign.
-Access sites are stable.
-Antithrombotic therapy with aspirin and clopidogrel. Platelets steady at 81K. Outpatient CBC in one week.
-Post procedural echocardiogram pending.
#CAD
-Chronic, stable.
-Continue DAPT, atorvastatin.
#HLD
-Chronic, stable.
-Continue atorvastatin.
-Goal LDL < 55.
#HTN
-Chronic, stable.
-Continue home carvedilol 6.25 mg BID.
#PPx
-SCDs/ambulation for DVT/VTE.
-No role for PPI.
#Dispo
-IVU status.
-Full code.
-Discharge planning, assuming no issues on echo.
Subjective/Interval History:
Successful TAVR yesterday.
DATA:
Cardiac Catheterization, 10/16/2024:
CONCLUSIONS:
1. Right dominant circulation with luminal irregularities throughout the entire coronary tree, a 50% lesion in the terminal RPDA, several 30-40% lesions in OM 2 and patent stents in the second diagonal, mid LAD and distal LAD with no evidence of
ISR.
2. Mildly elevated filling pressures (PCWP = 17 mmHg at 70.3 kg).
3. Severe aortic valve stenosis by echocardiography.
TAVR, 12/12/2024:
Conclusions:
1. Successful placement of #26 Mulu S3 Ultra Resilia aortic valve via right transfemoral approach with no acute complications.
Intraprocedural TTE, 12/12/2024:
CONCLUSIONS
Normal left ventricular chamber size. Normal left ventricular systolic
function. Mild concentric left ventricular hypertrophy. Left ventricular
ejection fraction is 65-70% by visual estimate.
Normal right ventricular size and function.
26 mm Turk transcatheter aortic valve replacement. No aortic regurgitation
is seen. Peak/mean gradients across the aortic valve are 10/6 mmHg
respectively.
No pericardial effusion.
Physical Exam
Vital Signs/Labs
Vital Signs
Temp Pulse Resp BP Pulse Ox
37.2 C 65 18 148/68 97
12/13/24 07:12 12/13/24 06:00 12/13/24 07:12 12/13/24 05:27 12/13/24 07:12
12/11/24 12/12/24 12/13/24
11:59 11:59 11:59
Actual Weight 70.8 kg 71.1 kg
12/13/24 03:00
12/13/24 03:00
PT 15.2 Sec (11.4-14.6) H 12/03/24 10:05
INR 1.17 12/03/24 10:05
APTT 32.9 Sec (23.4-35.0) 12/03/24 10:05
12/03/24
10:05
Gor-J-Ekhddtogmpn Pept 281
Physical Exam
Constitutional: No acute distress and Comfortable
EENT: Anicteric and Moist mucous membranes
Cardiovascular: Rhythm & rate is regular, Pedal edema is absent, JVD pressure is normal, S1S2 is normal and Murmur/rub/gallop absent
Respiratory: Respiratory effort normal, Lungs clear to auscul., Wheeze Absent, Crackles Absent and Rhonchi Absent
GI: Soft, Distention absent, Flat, Non tender and Normal bowel sounds
Neuro/Psych: AO x 3
Other: Cath Site (Bilateral femoral access sites are C/D/I.)
Data Reviewed
-
Date of Service: December 13, 2024
Medical Decision Making: Reviewed Test Results, Independent Historian Assessment, Test Interpretation and Review of Case with other Provider
EKG: Tracing Personally Visualized and interpreted and Report Reviewed by me
Echo: Tracing Personally Visualized and interpreted and Report Reviewed by me
X-Ray/CT/US/MRI/NUC/PET: Image Personally Visualized and interpreted and Report Reviewed by me
Medical Tests (PFT, Pathology etc): Image Personally Visualized and interpreted and Report Reviewed by me
Labs: Labs Reviewed by me
Old Records: Reviewed
--- NOTE | 2024-12-13 10:10 | W.DCSUMMARY ---
Discharge Summary
Discharge Data
Date of Admission: 12/12/24
Date of Discharge: 12/13/24
Total time spent discharging patient (in min): 35
-
Pending Results: No
Hospital Course
Primary care physician:
Dr. Polanco
Outpatient account executive agribusiness:
Dr. Samuel
Inpatient consultants:
[facility] cardiology
Procedures:
1. Right transfemoral transcatheter aortic valve replacement with #26 mm [id number]
Primary Diagnosis:
1. Severe aortic stenosis
Secondary Diagnoses:
1. Chronic thrombocytopenia
2. Hypertension
3. Hyperlipidemia
4. CAD s/p stents
5. BPH
6. Obstructive sleep apnea
HPI: 74-year-old male with severe aortic stenosis presented electively on 12/12 for a transcatheter aortic valve replacement with Dr. Joaquin.
Hospital course:
Patient was electively admitted on 12/12 for a transcatheter aortic valve replacement with Dr. Joaquin. There were no intra-op events and patient went to brush clearing laborer recovery. B/l groins remain stable. He was sent to IVU for the remainder of their
recovery. On 12/13, POD #1, B/L groins remained stable. Repeat TTE showed a peak/mean gradient of 20/10 mmHg of the Aortic valve. He was deemed stable for discharge.
Home medication changes:
See below
Discharge Plan
-
Patient Disposition: Home (Routine Discharge)
Discharge Diagnosis/Procedures: TF TAVR
Condition: Good
Diet: Low Fat, Low Cholesterol and 2 Gram Sodium
Activity: As tolerated
Driving Restrictions: No driving for 1 week
Bathing Restrictions: OK to Shower
Blood Work: CBC in one weel
Others Tests: Your 30-day follow echo:01/16/2025 @ 2:00 at [facility].
You will need lifelong preprocedural/predental antibiotic prophylaxis for any future dental procedures.
Other Services: Cardiac Rehab
Wound Care: NO lotions, powders, or creams to puncture sites
Specialty Instructions: Weigh Daily- Call MD for wt gain/loss 3 lbs overnight/5 lbs in 1 week
Activity Restrictions/Additional Instructions:
ACTIVITY:
-No strenuous activity: no heavy lifting, pushing, pulling anything over 15 pounds for one month
-continue to use stairs as tolerated
DRIVING RESTRICTIONS:
-No driving for one month or until approved by your surgeon
WOUND CARE:
-Shower daily. Use soap & water.
-No lotions, creams or powders on incision area.
DIET:
-continue a low fat/low cholesterol diet.
-IF you are diabetic, continue carb controlled diet.
CARDIAC REHAB:
-Please make appointment to start in 5-6 weeks with your local hospital program. (See Cardiac Rehabilitation Discharge Booklet).
SPECIALTY INSTRUCTIONS:
-Weigh yourself daily. Call your physician for any weight gain/loss of 3 lbs overnight or 5 lbs in one week.
-REPORT any clicking noise or uneven appearance of your sternum to your surgeon immediately.
-If you smoke, you are instructed to quit. The [place] smoking hotline phone number is [phone]
Referrals:
CT Transitional Care Nurse [Outside] (The Cardiothoracic Transitional Care Nurse will call you to set up a visit in 1-2 days.)
[facility] [Outside]
(Cardiac Rehab Orientation appointment is on Monday01/14/2025@ 08:30am.
The Cardiac Rehab gym is located on the first floor of the [facility].)
Amaury Polanco MD [Family Provider] -
Monica Nolan CRNP [Specified Professional Personl] - 01/13/25 8:40 am
Prescriptions:
Continued
Zinc Chelate 100 MG tablet
50 mg PO DAILY
Patient Comments:
aspirin [Aspir-Low] 81 MG tablet,delayed release (DR/EC)
81 mg PO DAILY
potassium gluconate 500 MG tablet
500 mg PO DAILY
Multi-Day with Iron 18-400 mg-mcg Tablet
1 tab PO DAILY
justin root extract 50 mg Tablet
200 mg PO DAILY
atorvastatin 40 MG tablet
20 mg PO HS Qty: 0 0RF
carvedilol 6.25 mg Tablet
6.25 mg PO BID Qty: 0 0RF
clopidogrel 75 mg tablet
75 mg PO DAILY Qty: 90 10RF
coenzyme Q10 [CoQ-10] 100 mg Capsule
100 mg PO DAILY Qty: 0 0RF
apple cider vinegar 500 mg Tablet
500 mg PO BID Qty: 0 0RF
fish oil-dha-epa 1 EACH capsule
2,400 mg PO DAILY Qty: 0 0RF
niacinamide 500 mg Capsule
500 mg PO DAILY Qty: 0 0RF
cholecalciferol (vitamin D3) [Vitamin D3] 2,000 UNIT capsule
2,000 unit PO DAILY Qty: 0 0RF
magnesium sulfate 100 mg Capsule
400 mg PO DAILY Qty: 0 0RF
Discharge Orders:
Discharge Patient (As Directed); Ordered 12/13/24
Ordered By: Saray Smith
Care Plan Goals
Care Plan Goals:
Problem: Readiness for enhanced knowledge related to diagnosis and treatment plan
Goal: Understand your diagnosis and treatment plan needs, including medications if applicable.
Instructions: Know your diagnosis, underlying causes and treatment plan options, including medications if applicable. Consult with your health care team to learn about your diagnosis and treatment plan, including medications if applicable.
Discharge Date and Time
Print Language: AMHARIC
[2024-12-13 10:35] VITALS: BP 134/90
--- NOTE | 2024-12-13 12:44 | PTCARENOTE ---
d/c instructions read to pt and pt verbalized understanding. pt left via wheelchair w/ . iv and tele removed. pt left w/ belongings from room and educational material.
[2024-12-13 13:59] VITALS: BP 134/90; BP 186/71; PULSE 65; O2SAT 100; O2SAT 98
== END 2024-12-13 13:00 | disposition home or self-care (01) | DRG 267 ==
LOC: IVU 05:29
PROVIDERS: Nurse Practitioner; ADMITTING PHYSICIAN Thoracic Surgery (Cardiothoracic Vascular Surgery); CONSULT PHYSICIAN Internal Medicine Cardiovascular Disease; FAMILY PHYSICIAN Family Medicine; OTHER PHYSICIAN Internal Medicine Cardiovascular Disease
PROC: 02RF38Z Replacement of Aortic Valve with Zooplastic Tissue, Percutaneous Approach (ICD-10-PCS; 2024-12-12)
DX: I35.0 Nonrheumatic aortic (valve) stenosis (principal); Z00.6 Encounter for examination for normal comparison and control in clinical research program; I25.10 Atherosclerotic heart disease of native coronary artery without angina pectoris; E78.5 Hyperlipidemia, unspecified; G47.33 Obstructive sleep apnea (adult) (pediatric); I11.9 Hypertensive heart disease without heart failure; N40.0 Benign prostatic hyperplasia without lower urinary tract symptoms; D69.6 Thrombocytopenia, unspecified; Z79.02 Long term (current) use of antithrombotics/antiplatelets; Z79.82 Long term (current) use of aspirin; Z79.899 Other long term (current) drug therapy; Z95.5 Presence of coronary angioplasty implant and graft
CPT/HCPCS: 93308; 33361; 36415; 71045; 71046; 80048; 80053; 81003; 81015; 82248; 83036; 83880; 85025; 85027; 85347; 85610; 85730; 86850; 86900; 86901; 87070; 93005; 93321; 93325; C1760; C1769; C1894; Q9967

== ENCOUNTER → 2025-01-16 13:58 | Outpatient (REF) | payer MEDICARE, SELFPAY | LOC: RCS 13:58 | PROVIDERS: ATTENDING PHYSICIAN Internal Medicine Cardiovascular Disease; FAMILY PHYSICIAN Family Medicine | DX: Z95.2 Presence of prosthetic heart valve (principal) | CPT/HCPCS: 93306 ==

== ENCOUNTER 2025-02-07 09:34 | Outpatient (RCR) | payer MEDICARE, SELFPAY | END 2025-02-07 23:59 | disposition home or self-care (01) | LOC: CRHB 09:34 | PROVIDERS: Internal Medicine Cardiovascular Disease; ATTENDING PHYSICIAN Thoracic Surgery (Cardiothoracic Vascular Surgery) | DX: I25.10 Atherosclerotic heart disease of native coronary artery without angina pectoris (principal); Z95.3 Presence of xenogenic heart valve; Z95.5 Presence of coronary angioplasty implant and graft | CPT/HCPCS: G0422; G0423 ==

== ENCOUNTER 2025-03-12 09:39 | Outpatient (RCR) | payer MEDICARE, SELFPAY | END 2025-03-12 23:59 | disposition home or self-care (01) | LOC: CRHB 09:39 | PROVIDERS: ATTENDING PHYSICIAN Thoracic Surgery (Cardiothoracic Vascular Surgery) | DX: I25.10 Atherosclerotic heart disease of native coronary artery without angina pectoris (principal); Z95.2 Presence of prosthetic heart valve | CPT/HCPCS: G0422; G0423 ==

== ENCOUNTER 2025-04-09 10:20 | Outpatient (RCR) | payer MEDICARE, SELFPAY | END 2025-04-09 23:59 | disposition home or self-care (01) | LOC: CRHB 10:20 | PROVIDERS: ATTENDING PHYSICIAN Thoracic Surgery (Cardiothoracic Vascular Surgery) | DX: Z95.2 Presence of prosthetic heart valve (principal) | CPT/HCPCS: 93797; 93798; G0422; G0423 ==

== ENCOUNTER 2025-05-02 09:00 | Outpatient (RCR) | payer MEDICARE, SELFPAY ==
[2025-04-24 07:55] LABS: HDL Cholesterol 35 mg/dl; LDL Cholesterol, Calculated 83 mg/dl; Very Low Density Lipoprotein 25 mg/dl (0-30)
== END 2025-05-02 11:07 | disposition home or self-care (01) ==
LOC: CRHB 09:00
PROVIDERS: ATTENDING PHYSICIAN Thoracic Surgery (Cardiothoracic Vascular Surgery); FAMILY PHYSICIAN Family Medicine; REFERRING PHYSICIAN Internal Medicine Cardiovascular Disease
DX: I25.10 Atherosclerotic heart disease of native coronary artery without angina pectoris (principal); Z95.2 Presence of prosthetic heart valve
CPT/HCPCS: 36415; 80061; G0422; G0423